=== PATIENT | female | born 1955 | race Caucasian/White ===

== ENCOUNTER 2021-01-26 11:49 | Outpatient (REF) | payer MEDICARE, SELFPAY ==
[2021-01-26 14:33] LABS: ALT 28 U/L (14-59); AST 17 U/L (15-37); Alkaline Phosphatase 61 U/L (46-116); Anion Gap 9.9 mmol/L (3-11); BUN 17 mg/dL (7-18); Bilirubin, Total 0.3 mg/dL (0.2-1.0); CO2 24.1 mmol/L (21.0-32.0); CREATININE 0.7 mg/dL (0.55-1.02); Calcium 9.1 mg/dL (8.5-10.1); Chloride 107 mmol/L (98-107); Glucose 117 mg/dL (74-106); Potassium 4.5 mmol/L (3.5-5.1); Sodium 141 mmol/L (136-145); Total Protein 6.8 g/dL (6.4-8.2)
[2021-01-26 15:04] LABS: Hemoglobin A1C 6.1 % (<5.7)
[2021-01-26 22:30] LABS: Calculated LDL 107 mg/dL (<100); Cholesterol 196 mg/dL (<200); HDL Cholesterol 75 mg/dL (40-60); Triglyceride 73 mg/dL (<150)
== END 2021-01-26 11:50 | disposition home or self-care (01) ==
LOC: NCHCN 11:49
PROVIDERS: PCP Family Medicine; Visit Provider Family Medicine
DX: Z13.220 Encounter for screening for lipoid disorders (principal); E11.9 Type 2 diabetes mellitus without complications
CPT/HCPCS: 80053; 80061; 83036

== ENCOUNTER 2021-03-22 01:29 | Outpatient (CLI) | payer MEDICARE, SELFPAY ==
--- NOTE | 2021-03-22 | DI.DEXA_ITS ---
Exam(s) XR DEXA BONE DENSITY W/WO EDD EXAM: XR DEXA BONE DENSITY W/WO EDD CLINICAL HISTORY: SCREENING FOR OSTEOPOROSIS IN POSTMENOPAUSAL WOMAN,Z78.0 TECHNIQUE: Routine DEXA evaluation of the lumbar spine, hip, or forearm. COMPARISON: Prior DEXA scan August 2015 FINDINGS: Performed on a [employer] unit. Lateral image: No compression fracture seen Lumbar Spine total T-score: -2.7. Prior 2016 reading was -2.3. Hip total T-score:-2.4. Previous 2016 reading was -1.9 Independent reading at the femoral neck yields a T-score of -1.9 Forearm total T-score: -2.1 IMPRESSION: Bone mineral density measures in the osteoporosis range. Fracture risk is high. Note: Any spine fracture indicates 5x risk for subsequent spine fracture and 2x risk for subsequent h ip fracture. World Health Organization criteria for BMD interpretation classify patients: Normal...... T- Score at or above -1.0 Osteopenic... T- Score between -1.0 and -2.5 Osteoporosis... T-Score at or below -2.5
--- NOTE | 2021-03-22 | DI.MAMMO_ITS ---
Exam(s) MAMMO SCREENING EXAM: MAMMO SCREENING CLINICAL HISTORY: SCREENING,Z12.31. TECHNIQUE: Bilateral full field digital CC and MLO mammographic images were obtained with 3D tomosyn thesis and utilizing computer aided detection (CAD). COMPARISON: Prior mammograms dating back to 2015, the most recent being February 2017. FINDINGS: There has been no significant change in the appearance and distribution of fibroglandular tissue. Asymmetric density in the left breast is unchanged from the prior studies. There are no new spiculated masses nor malignant appearing microcalcification groups. There is no significant architectural distortion nor skin thickening-retraction. IMPRESSION: No radiographic evidence of malignancy. BI-RADS Category 1 - Negative Breast Density - Category B - Scattered areas of fibroglandular density Breast density Category C or D implies that the patient has dense breast tissue. Dense breast tissue can make it harder to find cancer on a mammogram. Dense breast tissue is also associated with an incr eased risk of breast cancer. This information about the result of the mammogram report was provided to the patient to raise their awareness. Use this report when you speak with the patient about their risks for breast cancer, which includes their family history. At that time, you may recommend additional screening tests (Ultrasoun d or MRI) as these tests may add significant information. A negative radiographic report should not delay biopsy if a dominant or clinically suspicious mass is present. Up to ten percent of cancers are not identified on mammography. A negative report may reinforce clinical impression. Adenosis and dense breasts may obscure an underlying neoplasm. False positive reports average 6 to 10%. Patient will receive a letter notifying them of these results.
== END 2021-03-22 01:49 ==
PROVIDERS: PCP Family Medicine; Visit Provider Family Medicine
DX: Z78.0 Asymptomatic menopausal state (principal); Z12.31 Encounter for screening mammogram for malignant neoplasm of breast; M85.89 Other specified disorders of bone density and structure, multiple sites; M81.0 Age-related osteoporosis without current pathological fracture
CPT/HCPCS: 77063; 77067; 77080

== ENCOUNTER 2023-02-15 11:01 | Outpatient (REF) | payer MEDICARE, SELFPAY ==
--- NOTE | 2023-02-15 | DI.RAD_ITS ---
Exam(s) XR CHEST 2V PA LATERAL EXAM: XR CHEST 2V PA LATERAL CLINICAL HISTORY: COUGH TECHNIQUE: 2D digital imaging was performed. COMPARISON: No exams were available for comparison FINDINGS: HEART: Normal size. Aorta: Not dilated. PULMONARY VASCULATURE: Normal. LUNGS: Streaky densities seen posterior to the heart at the left lung base suspicious for pneumonia. Right lung appears clear. PLEURAL SPACE: No pleural effusion or pneumothorax. BONE:Unremarkable for age. IMPRESSION: Left lower lobe infiltrate. DATA REPOSITORY: RADIATION DOSE DELIVERED:
--- NOTE | 2023-02-15 11:25 | DI.VRAD_ITS ---
PROCEDURE INFORMATION: Exam: XR Chest Exam date and time: 02/15/2023 11:11 AM Age: 68 years old Clinical indication: Cough TECHNIQUE: Imaging protocol: Radiologic exam of the chest. Views: 2 views. COMPARISON: No relevant prior studies available. FINDINGS: Lungs: Mild opacity in the medial left base Pleural spaces: Unremarkable. No pleural effusion. No pneumothorax. Heart/Mediastinum: Unremarkable. No cardiomegaly. Bones/joints: Unremarkable. IMPRESSION: Mild opacity in the medial left base may represent atelectasis or pneumonia. Dictated and Authenticated by: Alexis Yoon MD. Ordering:JA STRICKLAND MD
== END 2023-02-15 11:21 ==
LOC: DI 11:01
PROVIDERS: PCP Family Medicine; Visit Provider Nurse Practitioner Family
DX: R05.8 Other specified cough (principal); R91.8 Other nonspecific abnormal finding of lung field
CPT/HCPCS: 71046

== ENCOUNTER → 2023-03-13 01:12 | Outpatient (CLI) | payer MEDICARE, SELFPAY ==
--- NOTE | 2023-03-13 | DI.MAMMO_ITS ---
Exam(s) MAMMO SCREENING EXAM: MAMMO SCREENING CLINICAL HISTORY: SCREENING MAMMO Z12.31 PREVENTATIVE CARE Z00.00 TECHNIQUE: Bilateral full field digital CC and MLO mammographic images were obtained with 3D tomosyn thesis and utilizing computer aided detection (CAD). COMPARISON: Available for comparison. FINDINGS: Masses/Architectural Distortion: No areas of architectural distortion. There is an ovoid opacity in the central left breast just lateral of midline on the CC view. It is 6 cm from the nipple. Microcalcifications: No suspicious pleomorphic-type are seen. Skin Thickening/Nipple Retraction: None. IMPRESSION: 1. Ovoid opacity in the central left breast on the CC view. 2. This area should be further evaluated with a spot compression view. A limited left breast ultraso und should be obtained at that time. BI-RADS Category 0 - Assessment Incomplete: Need additional imaging evaluation Breast Density - Category B - Scattered areas of fibroglandular density Breast density category C or D implies that the patient has dense breast tissue. Dense breast tissue is very common and is not abnormal but dense breast tissue can make it harder to find cancer on a ma mmogram. Also, dense breast tissue may increase their breast cancer risk. This information about the result of the mammogram report was provided to the patient to raise their awareness. Use this report when you speak with the patient about their risks for breast cancer, which includes their family hist ory. At that time, you may recommend for more screening tests (Ultrasound or MRI) as they might be us eful based on their risk. A negative radiographic report should not delay biopsy if a dominant or clinically suspicious mass is present. Up to ten percent of cancers are not identified on mammography. A negative report may reinforce clinical impression. Adenosis and dense breasts may obscure an underlying neoplasm. False positive reports average 6 to 10%. Patient will receive a letter notifying them of these results.
== END ==
PROVIDERS: PCP Family Medicine; Visit Provider Family Medicine
DX: Z12.31 Encounter for screening mammogram for malignant neoplasm of breast (principal)
CPT/HCPCS: 77063; 77067

== ENCOUNTER → 2023-03-20 02:51 | Outpatient (CLI) | payer MEDICARE, SELFPAY ==
--- NOTE | 2023-03-20 | DI.MAMMO_ITS ---
Exam(s) MG MAMMO SCREEN CALL BACK UNI US BREAST LT COMPLETE EXAM: MG MAMMO SCREEN CALL BACK UNI-LEFT AND COMPLETE LEFT BREAST ULTRASOUND CLINICAL HISTORY: F/U MAMMO, R92.8, OVAL OPACITY LT BREAST. TECHNIQUE: Unilateral spot mammographic images obtained with 3D tomosynthesisand utilizing computer aided detection (CAD). . Complete breast Ultrasound was also performed, including all 4 quadrants, the retroareolar region, a nd the ipsilateral axilla. COMPARISON: Prior mammograms were reviewed. This additional imaging was performed due to findings described on the recent screening mammogram of . FINDINGS: DIAGNOSTIC MAMMOGRAM: Additional mammographic views performed todayrender this area less concerning and similar in appearan ce to prior mammograms.. COMPLETE LEFT BREAST ULTRASOUND: Ultrasound performed today reveals no evidence of solid or significant cystic lesions in all 4 quadra nts.. Scanning of the ipsilateral axilla reveals no significant adenopathy. IMPRESSION: 1. No radiographic evidence of malignancy in left breast. 2. Negative complete left breast ultrasound Appropriate follow-up is to keep this patient on a yearly mammogram schedule with earlier imaging if a self detected breast change is noted.. The patient was informed of these findings and recommendations prior to leaving the department today. BI-RADS Category 2 - Benign Findings Breast Density - Category B - Scattered areas of fibroglandular density Breast density Category C or D implies that the patient has dense breast tissue. Dense breast tissue can make it harder to find cancer on a mammogram. Dense breast tissue is also associated with an incr eased risk of breast cancer. This information about the result of the mammogram report was provided to the patient to raise their awareness. Use this report when you speak with the patient about their risks for breast cancer, which includes their family history. At that time, you may recommend additional screening tests (Ultrasoun d or MRI) as these tests may add significant information. A negative radiographic report should not delay biopsy if a dominant or clinically suspicious mass is present. Up to ten percent of cancers are not identified on mammography. A negative report may reinforce clinical impression. Adenosis and dense breasts may obscure an underlying neoplasm. False positive reports average 6 to 10%. Patient will receive a letter notifying them of these results.
== END ==
PROVIDERS: PCP Family Medicine; Visit Provider Family Medicine
DX: Z12.31 Encounter for screening mammogram for malignant neoplasm of breast (principal); R92.8 Other abnormal and inconclusive findings on diagnostic imaging of breast
CPT/HCPCS: 76642; 77063; 77067

== ENCOUNTER 2023-10-25 09:23 | Emergency (ER) | payer MEDICARE, SELFPAY ==
[2023-10-25 09:47] VITALS: BP 193/87; PULSE 78; RESP 14; TEMP 37.2; O2SAT 98
--- NOTE | 2023-10-25 10:45 | DI.RAD_ITS ---
Exam(s) XR LUMBAR SPINE COMPLETE EXAM: XR LUMBAR SPINE COMPLETE CLINICAL HISTORY: Fall, lower back pain. TECHNIQUE: 2D digital imaging was performed of the lumbar spine. Seven images were obtained. AP, l ateral, right oblique, left oblique and L5-S1 spot views were obtained. COMPARISON: CR XR DEXA BONE DENSITY W/WO EDD from 03/22/2021 CR,XR XR CHEST 2V PA LATERAL from 02/15/2023 FINDINGS: BONES: There is a superior compression fracture of the T12 vertebral body. It was not present on the most recent examination to include this area which was a chest x-ray from 02/15/2023. There is loss o f approximately 20 percent of the height of the vertebral body. Small endplate osteophytes are seen at several levels of the lumbar spine. Degenerative changes of the facets are seen at L4-5 and L5-S1 . DISKS: There is disc space narrowing at T12-L1 and L1-L2. ALIGNMENT: Lumbar spinal alignment is within normal limits. No spondylolysis or spondylolisthesis. SOFT TISSUE: There is a large amount of stool in the colon suggesting constipation. IMPRESSION: 1. Compression fracture of the superior endplate of T12. This was not present on the most recent exa mination of 02/15/2023. MRI examination should be considered for further evaluation. 2. No acute fracture or subluxation is seen in the lumbar spine. 3. [id number] degenerative changes are seen in the lumbar spine as described above. DATA REPOSITORY: RADIATION DOSE DELIVERED:
--- NOTE | 2023-10-25 10:45 | DI.RAD_ITS ---
Exam(s) XR PELVIS AP EXAM: XR PELVIS AP CLINICAL HISTORY: Fall, Pain. TECHNIQUE: 2D digital imaging was performed.One images were obtained. COMPARISON: No exams were available for comparison FINDINGS: BONES: No acute fracture is present. No bony destructive lesion is seen. JOINTS: No dislocation present. SOFT TISSUE: Normal. IMPRESSION: No acute fracture or dislocation. DATA REPOSITORY: RADIATION DOSE DELIVERED:
--- NOTE | 2023-10-25 11:04 | W.ED.GENAD ---
Discharge Plan Disposition Patient Disposition: Home Condition: Stable Discharge Details Clinical Impression: T12 compression fracture, Lumbago Primary Care Provider: Shana Kendrick ED Provider: Yadira Donohue Home Meds and New Rx's Prescriptions: New lidocaine 5 % adhesive patch,medicated 1 patch topical DAILY PRN (Reason: pain (scale score 4-6)) Qty: 15 0RF Rx Instructions: leave on most painful area for up to 12 hrs Discharge Instructions Instructions: Vertebral Compression Fracture (ED), Low Back Strain (ED) Additional Instructions: There is a compression fracture of T12 which may be new. This could explain your pain. Please continue to take Tylenol and ibuprofen, apply lidocaine patches. You may also consider buying a back brace which she can get [id number]. Return to the ER for any numbness tingling, loss of bowel or bladder control, weakness in your legs or concerns. Usually these type of fractures heal on their own. Follow up with primary care provider in 3-5 days. Return to ED sooner if any worsening or concerns. Please take Tylenol or Ibuprofen with food every 4-6 hours as needed for pain and swelling. Referrals: Shana Kendrick [Primary Care Provider] - 5 days Discharge Data Discharge Date/Time-TO BE ENTERED AT DEPARTURE: 10/25/23 12:56 HPI General Mode of arrival: ambulatory. Date/Time Provider Initiated Documentation: 10/25/23 10:48. Limitations to Documentation: no limitations. Information obtained by: patient, RN notes reviewed and old records reviewed. HPI Narrative: 68 year old female presents to the ED with cc of lower back pain since falling onto her back on . Patient states that she got tangled in a dog leash and fell onto her back. She denies any radiation into her legs denies any loss of bowel or bladder control no saddle anesthesia. She has been taking Tylenol every 4 hours pain is worse with bending. Denies any other injury. Related Data Home Medications Medication Instructions Recorded Confirmed lidocaine 5 % topical patch 1 patch topical DAILY PRN pain 10/25/23 (scale score 4-6) #15 ea Previous Rx's Medication Instructions Recorded lidocaine 5 % topical patch 1 patch topical DAILY PRN pain 10/25/23 (scale score 4-6) #15 ea Allergies Allergy/AdvReac Type Severity Reaction Status Date / Time No Known Allergies Allergy Unverified 10/25/23 09:53 General Stated Complaint: Nk/Back Pain HENRRY: 4 Review of Systems All systems reviewed & are unremarkable except as noted in HPI and below Musculoskeletal Musculoskeletal: Reports as per HPI and Reports back pain Exam Narrative Exam Narrative: General: Well Developed, Awake and Alert, conversant. Skin: Warm and Dry HEENT: Head: No palpable deformities, Normocephalic Eyes: Pupils PERRLA, EOM's intact. No periorbital eccymosis or step off Ears: Canal patent. Tympanic membranes are clear . No serrano's sign, no hemptympanum. Nose/Face: Atraumatic. Facial bones nontender to palpation and stable with manipulation. Mouth/Throat: No intraoral trauma. Teeth and mandible are intact. Neck: No midline tenderness, no step off, no deformity to palpation of C-spine. Trachea midline. Chest: No surface trauma. Nontender without crepitus or deformity. Lungs clear to ausculatation bilaterally. Heart: RRR, no rubs, murmurs or gallop. Abdomen: No abrasions, ecchymosis, or surface trauma. Nondistended. Nontender to palpation no guarding, rebound, or rigidity. Pelvis: Nontender to palpation and stable to compression. Femoral pulses strong and equal Extremities: no surface trauma. Sensation intact. Peripheral pulses intact and equal. Neuro: ANO x4, GCS 15, cranial nerves II through XII intact. Motor and sensory exam nonfocal. Reflexes are symmetric. Course Vital Signs Vital signs: Vital Signs Temperature 37.2 C 10/25/23 09:47 Pulse 78 10/25/23 09:47 Respiratory Rate 14 10/25/23 09:47 Blood Pressure 193/87 H 10/25/23 09:47 Pulse Oximetry 98 10/25/23 09:47 Temperature 37.2 C 10/25/23 09:47 Temperature Source Skin 10/25/23 09:47 Pulse 78 10/25/23 09:47 Respiratory Rate 14 10/25/23 09:47 Blood Pressure 193/87 H 10/25/23 09:47 Blood Pressure Position Sitting 10/25/23 09:47 Pulse Oximetry 98 10/25/23 09:47 Oxygen Delivery Method Room Air 10/25/23 09:47 Oxygen Flow Rate 0 10/25/23 09:47 Pain Level 8 10/25/23 09:47 Medical Decision Making 68 year old female presents to the ED with cc of lower back pain since falling onto her back on . Patient states that she got tangled in a dog leash and fell onto her back. She denies any radiation into her legs denies any loss of bowel or bladder control no saddle anesthesia. She has been taking Tylenol every 4 hours pain is worse with bending. Denies any other injury. X-ray of L-spine and pelvis ordered. Lidocaine patch ordered. Possible Compression fracture of T12, age indeterminate. Given discharge instructions, lidocaine patch prescription and home care. Blood pressure is improved since initial presentation. Given strict return instructions. This text was generated using [employer] dictation system, please disregard any oddities of phrase or misspellings. Imaging Data Radiologic Study: Imaging: X-Ray Radiologist's impression: FINDINGS: Bones/joints: There is minimal scoliosis convex to the left in the lower lumbar spine which could be positional or due to spasm. Alignment is otherwise unremarkable. There is compression deformity involving T12 particularly the superior endplate, age indeterminate by plain film exam. There is no evidence of an acute fracture in the lumbar spine nor significant decrease of vertebral body height in the lumbar spine. There is mild disc space narrowing, spondylitic changes of the endplates and facet arthropathy in the lumbar spine. The SI joints appear symmetric. Soft tissues: Unremarkable by plain film exam. Gastrointestinal tract: The bowel gas pattern is unremarkable. Prominent colonic stool is noted. IMPRESSION: T12 compression deformity age indeterminate by plain film exam. If further evaluation for recent or acute bony injury is indicated, MR correlation suggested. Thank you for allowing us to participate in the care of your patient. Dictated and Authenticated by: Ann-Marie Mattson MD Quality:SDOH Health Related Social Needs: No Data to Display PFSH All Active Problems (Updated 10/25/23 @ 12:32 by Yadira Donohue NP) Lumbago (Acute) T12 compression fracture (Acute) Social History Smoking/Tobacco Use Status: Unknown Smoking risk assessment performed?: Yes Do you feel safe at home: Yes
[2023-10-25 11:05] VITALS: BP 191/90
[2023-10-25] MEDS: Lidocaine 5% Patch 1 PATCH TP (11:17)
[2023-10-25 11:40] VITALS: BP 159/93; PULSE 68; RESP 18; TEMP 37.1; O2SAT 96
--- NOTE | 2023-10-25 12:26 | DI.VRAD_ITS ---
PROCEDURE INFORMATION: Exam: XR Lumbosacral Spine Exam date and time: 10/25/2023 12:01 PM Age: 68 years old Clinical indication: Injury or trauma; Fall; Sprain or strain, lumbar ligaments TECHNIQUE: Imaging protocol: Radiologic exam of the lumbosacral spine. Views: 4 or 5 views. COMPARISON: CR XR PELVIS AP 10/25/2023 12:00 PM FINDINGS: Bones/joints: There is minimal scoliosis convex to the left in the lower lumbar spine which could be positional or due to spasm. Alignment is otherwise unremarkable. There is compression deformity involving T12 particularly the superior endplate, age indeterminate by plain film exam. There is no evidence of an acute fracture in the lumbar spine nor significant decrease of vertebral body height in the lumbar spine. There is mild disc space narrowing, spondylitic changes of the endplates and facet arthropathy in the lumbar spine. The SI joints appear symmetric. Soft tissues: Unremarkable by plain film exam. Gastrointestinal tract: The bowel gas pattern is unremarkable. Prominent colonic stool is noted. IMPRESSION: T12 compression deformity age indeterminate by plain film exam. If further evaluation for recent or acute bony injury is indicated, MR correlation suggested. Dictated and Authenticated by: Ann-Marie Mattson MD. Ordering:CAROLINE May MD
--- NOTE | 2023-10-25 12:27 | DI.VRAD_ITS ---
PROCEDURE INFORMATION: Exam: XR Pelvis Exam date and time: 10/25/2023 12:00 PM Age: 68 years old Clinical indication: Injury or trauma; Fall; Blunt trauma (contusions or hematomas); Does not apply; Pelvic region TECHNIQUE: Imaging protocol: Radiologic exam of the pelvis. Views: 1 or 2 view. COMPARISON: No relevant prior studies available. FINDINGS: Bones/joints: Bony mineralization is within normal limits. SI joints are symmetric. Hip joints are symmetric. No acute fracture identified. Degenerative changes are seen in the lower lumbar spine Soft tissues: Unremarkable. Gastrointestinal tract: Prominent colonic stool is noted IMPRESSION: No acute findings on AP view of the pelvis. Dictated and Authenticated by: Ann-Marie Mattson MD. Ordering:CAROLINE May MD
[2023-10-25 12:55] VITALS: BP 153/88; PULSE 68; RESP 18; TEMP 37.1; O2SAT 96
== END 2023-10-25 12:56 | disposition home or self-care (01) ==
PROVIDERS: Emergency Provider Registered Nurse Emergency; PCP Family Medicine
DX: M54.50 Low back pain, unspecified (principal)
CPT/HCPCS: 99283; 72110; 72170